=== PATIENT | female | born 1965 | race Caucasian/White ===

== ENCOUNTER → 2019-05-02 | Outpatient (CLI) | payer OTHER ==
[~2019-05-02] VITALS: Ht 152.4 cm; Wt 60.4 kg
[~2019-05-02] MED LIST: BISA-49 PO; BUPR150T28 PO; CHOL500045 PO; CYAN-27 PO; DIAZ5TAB4 PO; DIPHENHYDRAMINE 50 MG/ML, 1ML ONE; DULO60CA7 PO; EPINEPHRINE 1 MG/ML, 1ML ONE; FURO20TA3 PO; IRON DEXTRAN COMPLEX 1,000 MG in SODIUM CHLORIDE 0.9% 250 ML IV ONE; IRON DEXTRAN COMPLEX 25 MG in SODIUM CHLORIDE 0.9% 50 ML IV ONE; LANS30CA60 PO; LEVO25TA2 PO; NAPR125O4 PO; OXYC5CAP2; POTA99TA8 PO; PRENATAL ONE T1 EACH PO; ROXICET; SENN15TA PO; SOY155CA PO; SUMA100T4 PO; ZOLP10TA5 PO
[2019-05-02 08:30] VITALS: BP 113/72
== END | disposition home or self-care (01) ==
LOC: INFUSION 06:22
PROVIDERS: ATTEND Surgery
DX: D64.9 Anemia, unspecified (principal); G89.4 Chronic pain syndrome; K21.9 Gastro-esophageal reflux disease without esophagitis; F32.9 Major depressive disorder, single episode, unspecified; Z90.49 Acquired absence of other specified parts of digestive tract; Z72.0 Tobacco use
CPT/HCPCS: 36415; 36591; 85014; 85018; 96365; 96366; 96367; J1750; J7050

== ENCOUNTER 2020-12-06 05:52 | Day surgery (SDC) | payer OTHER ==
[~2020-12-06] VITALS: Ht 152.4 cm; Wt 70.9 kg
[2020-12-06 06:59] VITALS: BP 101/69
== END 2020-12-06 14:52 | disposition home or self-care (01) ==
LOC: CACL 05:52
PROVIDERS: ATTEND Internal Medicine Clinical Cardiac Electrophysiology
DX: I47.1 Supraventricular tachycardia (principal); Z79.01 Long term (current) use of anticoagulants; Z79.899 Other long term (current) drug therapy; Z88.7 Allergy status to serum and vaccine